=== PATIENT | female | born 1990 | race Caucasian/White ===

== ENCOUNTER 2016-10-08 13:50 | Emergency (ER) | payer BC, OTHER ==
[2016-10-08] MEDS ORDERED: Sodium Chloride 0.9% 10 ML Syringe FLUSH PRN (14:26)
[2016-10-08] MEDS ORDERED: HYDROmorphone 1 MG/ML Syringe IVPUSH ONE (14:27)
[2016-10-08] MEDS ORDERED: Ondansetron 4 MG/2 ML SDV IVPUSH ONE (14:27)
--- NOTE | 2016-10-08 14:29 | EDM.PDOC ---
ED HPI GI/ABDOMINAL - General Chief Complaint: Abdominal Pain Stated Complaint: ABDOMINAL PAIN/ R SIDE PAIN Time Seen by Provider: 10/08/16 14:09 Source of Information: Reports: Patient History Limitations: Reports: No limitations - History of Present Illness INITIAL COMMENTS - FREE TEXT/NARRATIVE: Patient presents for evaluation and treatment of abdominal pain. Patient reports that the abdominal pain has been going on for several years. Over the last 2 weeks it has worsened and today has been especially severe. States that it is generalized but worse on the right side. Patient recently relocated to [place] from [place], [place]. In [place] she states that she was seeing gastroenterology. She has had numerous CTs performed, colonoscopies and EGDs. No etiology for abdominal pain has been found as of yet. She states that in 2011 she was seen at [facility]. No etiology for abdominal pain was found. Patient reports last year she had an exploratory lap performed. She states that she had adhesions of her uterus to her bowel. These were taken down. She also has a history of endometriosis. She states that since exploratory lap her abdominal pain has worsened. She states that now she is currently following a lactose-free diet. She uses a alcohol occasionally. Patient states today she took a 5 mg oxycodone, this was prescribed to her, and cannabis oil. She states that she does not use cannabis on a normal basis and only has been using oils for pain relief. Patient reports a taking a hot shower wall will ease her abdominal pain. Patient reports associated symptoms of nausea. She denies any vomiting, diarrhea , fevers, joint aches or pains or any skin rashes. She states that her last bowel movement was last week sometime. She states she does take stool softeners on regular basis. She has noticed some blood in her stool. Patient has had a cholecystectomy and appendectomy. Currently have an IUD in place. Last menstrual period was April. Location: generalized - Related Data Allergies/ADRs: Allergies Allergy/AdvReac Type Severity Reaction Status Date / Time lorazepam [From Ativan] Allergy Hallucinati Verified 10/18/13 16:03 CDT ons metoclopramide HCl Allergy Nausea and Verified 10/18/13 16:03 CDT [From Reglan] Vomiting Home Meds: Home Meds Acetaminophen/oxyCODONE [Percocet 325-5 MG] 1 tab PO Q6H #7 tablet 10/08/16 [Rx] Venlafaxine [Effexor] 75 mg PO DAILY 10/08/16 [History] Past Medical History Gastrointestinal History: Reports: Other (see below) Other Gastrointestinal History: acid reflux; [employer] History: Reports: Endometriosis Psychiatric History: Reports: Anxiety, Depression - Past Surgical History HEENT Surgical History: Reports: Tonsillectomy GI Surgical History: Reports: Cholecystectomy Female Surgical History: Reports: Other (see below) Other Female Surgeries/Procedures: exploratory surgery Social & Family History - Family History Family Medical History: Noncontributory - Tobacco Use Smoking Status *Q: Never Smoker Second Hand Smoke Exposure: No - Caffeine Use Caffeine Use: Reports: Coffee - Alcohol Use Days Per Week of Alcohol Use: 1 Number of Drinks Per Day: 1 Total Drinks Per Week: 1 - Recreational Drug Use Recreational Drug Use: No ED ROS GENERAL - Review of Systems Review Of Systems: See Below Constitutional: Denies: fever GI/Abdominal: Reports: Abdominal pain (generalized right side > left), Hematochezia, Nausea. Denies: Diarrhea, Melena, Vomiting : Reports: no symptoms ED EXAM, GI/ABD - Physical Exam Exam: See Below Exam Limited By: No limitations General Appearance: alert, WD/WN, mild distress, thin Respiratory/Chest: no respiratory distress, lungs clear, normal breath sounds Cardiovascular: normal peripheral pulses, regular rate, rhythm, no murmur GI/Abdominal: normal bowel sounds, soft, tenderness (generalized, worse in the epgastic, left lower quadrant, suprapubic and right lower quadrant), guarding. No: rebound, rigidity Neurological: alert, oriented, normal cognition Psychiatric: normal affect, normal mood Skin Exam: Warm, Dry, Normal color Course - Vital Signs Last Recorded V/S: Last Vital Signs Temp 36.7 C 10/08/16 14:00 Pulse 80 10/08/16 16:47 Resp 14 10/08/16 16:47 BP 98/72 10/08/16 16:47 Pulse Ox 100 10/08/16 16:47 - Orders/Labs/Meds Orders: Active Orders 24 hr Category Date Time Status Peripheral IV Care [RC] . DIRECTED Care 10/08/16 14:27 Active Peripheral IV Insertion Adult [OM.PC] Routine Oth 10/08/16 14:26 Ordered Labs: Laboratory Tests 10/08/16 10/08/16 10/08/16 Range/Units 14:04 14:04 14:30 WBC 6.22 (3.98-10.04) K/mm3 RBC 4.78 (3.98-5.22) M/mm3 Hgb 14.9 (11.2-15.7) gm/L Hct 44.4 (34.1-44.9) % MCV 92.9 (79.4-94.8) fl MCH 31.2 (25.6-32.2) pg MCHC 33.6 (32.2-35.5) g/dl RDW Std Deviation 41.9 (36.4-46.3) fL Plt Count 305 (182-369) K/mm3 MPV 8.7 L (9.4-12.3) fl Neut % (Auto) 37.9 (34.0-71.1) % Lymph % (Auto) 36.0 (19.3-51.7) % [place] % (Auto) 9.5 (4.7-12.5) % Eos % (Auto) 15.6 H (0.7-5.8) Baso % (Auto) 1.0 (0.1-1.2) % Neut # (Auto) 2.36 (1.56-6.13) K/mm3 Lymph # (Auto) 2.24 (1.18-3.74) K/mm3 [place] # (Auto) 0.59 H (0.24-0.36) K/mm3 Eos # (Auto) 0.97 H (0.04-0.36) K/mm3 Baso # (Auto) 0.06 (0.01-0.08) K/mm3 Manual Slide Review Abnormal smear Sodium (136-145) mEq/L Potassium (3.5-5.1) mEq/L Chloride (98-107) mEq/L Carbon Dioxide (21-32) mEq/L Anion Gap (5-15) BUN (7-18) mg/dL Creatinine (0.55-1.02) mg/dL Est Cr Clr Drug Dosing mL/min Estimated GFR (MDRD) (>60) mL/min BUN/Creatinine Ratio (14-18) Glucose (74-106) mg/dL Calcium (8.5-10.1) mg/dL Total Bilirubin (0.2-1.0) mg/dL AST (15-37) U/L ALT (14-59) U/L Alkaline Phosphatase (46-116) U/L C-Reactive Protein (<1.0) mg/dL Total Protein (6.4-8.2) g/dl Albumin (3.4-5.0) g/dl Globulin gm/dL Albumin/Globulin Ratio (1-2) TSH 3rd Generation (0.358-3.74) uIU/mL Urine Color Light yellow (Yellow) Urine Appearance Slt cloudy H (Clear) Urine pH 7.0 (5.0-8.0) Ur Specific [place] 1.025 (1.005-1.030) Urine Protein Negative (Negative) Urine Glucose (UA) Negative (Negative) Urine Ketones Negative (Negative) Urine Occult Blood Negative (Negative) Urine Nitrite Negative (Negative) Urine Bilirubin Negative (Negative) Urine Urobilinogen 0.2 (0.2-1.0) Ur Leukocyte Esterase Negative (Negative) Urine RBC 0-5 (0-5) /hpf Urine WBC 0-5 (0-5) /hpf Ur Epithelial Cells Not Reportable Ur Squamous Epith Cells 5-10 H (0-5) /hpf Urine Bacteria Few (FEW) /hpf Urine Mucus Few (FEW) /hpf Urine Opiates Screen Presumptive positive H (NEGATIVE) Ur Buprenorphine Scrn Negative (NEGATIVE) Ur Oxycodone Screen Negative (NEGATIVE) Urine Methadone Screen Negative (NEGATIVE) Ur Propoxyphene Screen Negative (NEGATIVE) Ur Barbiturates Screen Negative (NEGATIVE) Ur Tricyclics Screen Negative (NEGATIVE) Ur Phencyclidine Scrn Negative (NEGATIVE) Ur Amphetamine Screen Negative (NEGATIVE) U Methamphetamines Scrn Negative (NEGATIVE) U Benzodiazepines Scrn Negative (NEGATIVE) U Cocaine Metab Screen Negative (NEGATIVE) U Marijuana (THC) Screen Negative (NEGATIVE) 10/08/16 Range/Units 14:30 WBC (3.98-10.04) K/mm3 RBC (3.98-5.22) M/mm3 Hgb (11.2-15.7) gm/L Hct (34.1-44.9) % MCV (79.4-94.8) fl MCH (25.6-32.2) pg MCHC (32.2-35.5) g/dl RDW Std Deviation (36.4-46.3) fL Plt Count (182-369) K/mm3 MPV (9.4-12.3) fl Neut % (Auto) (34.0-71.1) % Lymph % (Auto) (19.3-51.7) % [place] % (Auto) (4.7-12.5) % Eos % (Auto) (0.7-5.8) Baso % (Auto) (0.1-1.2) % Neut # (Auto) (1.56-6.13) K/mm3 Lymph # (Auto) (1.18-3.74) K/mm3 [place] # (Auto) (0.24-0.36) K/mm3 Eos # (Auto) (0.04-0.36) K/mm3 Baso # (Auto) (0.01-0.08) K/mm3 Manual Slide Review Sodium 141 (136-145) mEq/L Potassium 3.7 (3.5-5.1) mEq/L Chloride 103 (98-107) mEq/L Carbon Dioxide 28 (21-32) mEq/L Anion Gap 13.7 (5-15) BUN 10 (7-18) mg/dL Creatinine 0.6 (0.55-1.02) mg/dL Est Cr Clr Drug Dosing 103.85 mL/min Estimated GFR (MDRD) > 60 (>60) mL/min BUN/Creatinine Ratio 16.7 (14-18) Glucose 107 H (74-106) mg/dL Calcium 9.0 (8.5-10.1) mg/dL Total Bilirubin 0.5 (0.2-1.0) mg/dL AST 22 (15-37) U/L ALT 22 (14-59) U/L Alkaline Phosphatase 52 (46-116) U/L C-Reactive Protein < 0.2 (<1.0) mg/dL Total Protein 7.9 (6.4-8.2) g/dl Albumin 4.3 (3.4-5.0) g/dl Globulin 3.6 gm/dL Albumin/Globulin Ratio 1.2 (1-2) TSH 3rd Generation 0.804 (0.358-3.74) uIU/mL Urine Color (Yellow) Urine Appearance (Clear) Urine pH (5.0-8.0) Ur Specific [place] (1.005-1.030) Urine Protein (Negative) Urine Glucose (UA) (Negative) Urine Ketones (Negative) Urine Occult Blood (Negative) Urine Nitrite (Negative) Urine Bilirubin (Negative) Urine Urobilinogen (0.2-1.0) Ur Leukocyte Esterase (Negative) Urine RBC (0-5) /hpf Urine WBC (0-5) /hpf Ur Epithelial Cells Ur Squamous Epith Cells (0-5) /hpf Urine Bacteria (FEW) /hpf Urine Mucus (FEW) /hpf Urine Opiates Screen (NEGATIVE) Ur Buprenorphine Scrn (NEGATIVE) Ur Oxycodone Screen (NEGATIVE) Urine Methadone Screen (NEGATIVE) Ur Propoxyphene Screen (NEGATIVE) Ur Barbiturates Screen (NEGATIVE) Ur Tricyclics Screen (NEGATIVE) Ur Phencyclidine Scrn (NEGATIVE) Ur Amphetamine Screen (NEGATIVE) U Methamphetamines Scrn (NEGATIVE) U Benzodiazepines Scrn (NEGATIVE) U Cocaine Metab Screen (NEGATIVE) U Marijuana (THC) Screen (NEGATIVE) Meds: Medications Discontinued Medications Generic Name Dose Route Start Last Admin Trade Name Freq PRN Reason Stop Dose Admin Hydromorphone HCl 1 mg 10/08/16 14:27 10/08/16 14:39 Dilaudid IVPUSH 10/08/16 14:28 1 mg ONETIME ONE Administration Ondansetron HCl 4 mg 10/08/16 14:27 10/08/16 14:39 Zofran IVPUSH 10/08/16 14:28 4 mg ONETIME ONE Administration Sodium Chloride 10 ml 10/08/16 14:26 10/08/16 14:41 Saline Flush FLUSH 10 ml ASDIRECTED PRN Administration Keep Vein Open - Re-Assessments/Exams Free Text/Narrative Re-Assessment/Exam: 10/08/16 14:19 I educated the patient that given her complex past medical history, it is unlikely to solve her abdominal pain today. I will obtain labs to ensure that there is nothing acute going on. I see no reason for imaging at this time. Will give medicine for nausea and pain relief. 10/08/16 16:29 Labs have returned. No abnormality seen on lab studies. She is negative for THC. Positive for opiates. patient feels improved after the IV Dilaudid. I will prescribe her a few pain pills. She is instructed to follow up with a primary care provider this week for further management and referral to GI. She is in agreement of this. Will discharge him at this time. Departure - Departure Time of Disposition: 16:23 Disposition: Home, Self-Care 01 Condition: fair Clinical Impression: Abdominal pain Prescriptions: Acetaminophen/oxyCODONE [Percocet 325-5 MG] 1 tab PO Q6H #7 tablet Instructions: Abdominal Pain, Adult, [id number] Referrals: PCP,Not In Area [Ordering Only Provider] - Emily Platt PA-C [Physician Nurses' Aide] - Forms: ED Department Discharge Additional Instructions: You were given medication in the ER that can affect your ability to drive operate machinery. No driving operating machinery within 12 hours of taking prescription narcotic pain medication. Follow up with a family medicine provider this week. I recommend Dr. Jung or Emily Platt. Please call [phone] to schedule of one of them. may take 1-2 Percocet every 4-6 hours as needed for severe pain. No driving operating machinery for 12 hours of taking the Percocet. Percocet can be habit- forming, I recommend you take as few of these as needed to control your pain. Please return to the ER should your symptoms change or worsen. - My Orders Last 24 Hours: My Active Orders 10/08/16 14:26 Peripheral IV Insertion Adult [OM.PC] Routine 10/08/16 14:27 Peripheral IV Care [RC] . DIRECTED - Assessment/Plan Last 24 Hours: My Active Orders 10/08/16 14:26 Peripheral IV Insertion Adult [OM.PC] Routine 10/08/16 14:27 Peripheral IV Care [RC] . DIRECTED
[2016-10-08 16:50] VITALS: BP 98/72
== END 2016-10-08 16:47 | disposition home or self-care (01) ==
LOC: JD.ED 13:50
DX: R10.84 Generalized abdominal pain (principal); Z88.8 Allergy status to other drugs, medicaments and biological substances; Z97.5 Presence of (intrauterine) contraceptive device; Z79.899 Other long term (current) drug therapy; K21.9 Gastro-esophageal reflux disease without esophagitis; F32.9 Major depressive disorder, single episode, unspecified; F41.9 Anxiety disorder, unspecified
CPT/HCPCS: 36415; 80053; 80306; 81001; 84443; 85025; 86140; 96374; 96375; 99284; J1170; J2405; J7050